=== PATIENT | female | born 1970 | race Hispanic/Latino ===

== ENCOUNTER 2021-11-12 13:45 | Emergency (ER) | payer MEDICARE | END 2021-11-12 16:57 | disposition home or self-care (01) | LOC: CSHERS 13:45 | DX: S82.001A Unspecified fracture of right patella, initial encounter for closed fracture (principal); E11.9 Type 2 diabetes mellitus without complications; I10 Essential (primary) hypertension; E78.5 Hyperlipidemia, unspecified; W18.30XA Fall on same level, unspecified, initial encounter; Y93.01 Activity, walking, marching and hiking ==